=== PATIENT | female | born 1985 | race Caucasian/White ===

== ENCOUNTER 2021-02-20 04:34 | Inpatient (IN) | payer BC ==
[2021-02-20 05:05] VITALS: BMI 30.4
[2021-02-20] MEDS ORDERED: Lidocaine 1% (PF) 30 ML VIAL SC PRN (05:21)
[2021-02-20] MEDS ORDERED: hydrALAZINE 20 MG/ML VIAL SLOW IVP PRN ×3 (05:21→09:55)
[2021-02-20] MEDS ORDERED: HYDROcodone/Acetaminophen 5/325 mg Tablet PO PRN ×6 (05:21→09:55)
[2021-02-20] MEDS ORDERED: Promethazine HCl 25 MG/ML VIAL IM PRN (05:21)
[2021-02-20] MEDS ORDERED: Ondansetron PF 4 MG/2 ML Vial IVP PRN ×3 (05:21→09:55)
[2021-02-20] MEDS ORDERED: Butorphanol Tartrate 1 MG/ML VIAL SLOW IVP PRN (05:21)
[2021-02-20] MEDS ORDERED: Misoprostol 200 MCG TAB PR PRN (05:21)
[2021-02-20] MEDS ORDERED: Lactated Ringer's 1,000 ML IV PRN (05:21)
[2021-02-20] MEDS ORDERED: Ibuprofen 800 MG TAB PO PRN (05:21)
[2021-02-20] MEDS ORDERED: Methylergonovine 0.2 MG/ML VIAL IM PRN (05:21)
[2021-02-20] MEDS ORDERED: NS w/ Oxytocin 30 units 500 ML IV SCH ×3 (05:30→09:55)
[2021-02-20] MEDS ORDERED: Clindamycin/D5W 900 MG in Premix Bag 1 BAG IVPB SCH (06:00)
[2021-02-20] MEDS ORDERED: Lidocaine 1% (PF) 30 ML VIAL ONE (06:54)
[2021-02-20 07:04] LABS: Hemoglobin 12.6 g/dL (12.0-15.5); Mean Corpuscular HGB CONC 33.2 g/dL (32.0-36.0); Mean Corpuscular Hemoglobin 31.2 pg (27.0-33.0); Mean Corpuscular Volume 93.8 fl (81.6-98.3); Mean Platelet Volume 10.4 fl (7.4-10.4); Platelet Count 255 10x3/uL (150-450); RBC Distribution Width 13.4 % (11.5-14.5); Red Blood Cell (RBC) Count 4.04 10x6/uL (3.90-5.03); White Blood Cell (WBC) Count 13.8 10x3/uL (3.5-10.5)
[2021-02-20 07:39] LABS: Hep B Surf Ag Non-Reactive S/CO (NonReactive)
[2021-02-20 07:40] LABS: Syphilis Antibody Nonreactive (Nonreactive); Syphilis Antibody Index 0.02 S/CO (<1.00 Non-Reactive)
[2021-02-20 07:42] LABS: HBSAg Index 0.21 S/CO (0-0.99)
[2021-02-20] MEDS ORDERED: NS w/ Oxytocin 30 units 500 ML ONE (07:42)
[2021-02-20] MEDS ORDERED: Boostrix 0.5 ML (Tdap) VIAL IM ONE (08:26)
[2021-02-20] MEDS ORDERED: Misoprostol 200 MCG TAB VAG PRN ×2 (08:26→09:55)
[2021-02-20] MEDS ORDERED: Bisacodyl 10 MG SUPP PR PRN ×2 (08:26→09:55)
[2021-02-20] MEDS ORDERED: Milk Of Magnesia 30 ML UDCUP PO PRN ×2 (08:26→09:55)
[2021-02-20] MEDS ORDERED: Benzocaine-Menthol 82.5 ML CAN TOP PRN ×2 (08:26→09:55)
[2021-02-20] MEDS ORDERED: Lanolin Ointment 7 GM TUBE TOP PRN (08:26)
[2021-02-20] MEDS ORDERED: Ibuprofen 800 MG TAB PO SCH (08:30)
[2021-02-20] MEDS ORDERED: Ferrous Sulfate 325 MG TAB PO SCH ×2 (08:45→17:00)
[2021-02-20] MEDS ORDERED: Prenatal Vitamin 1 TAB PO SCH ×2 (09:00→10:15)
[2021-02-20] MEDS ORDERED: Docusate Calcium (SURFAK) 240 MG CAP PO SCH ×2 (09:00→10:15)
[2021-02-20 10:32] LABS: SARS-CoV-2 NAA Rapid Test Not Detected (NotDetected)
[2021-02-20] MEDS: Ibuprofen 800 MG TAB PO SCH ×2 (14:37→21:48)
[2021-02-20] MEDS: Ferrous Sulfate 325 MG TAB PO SCH (16:34)
[2021-02-20] MEDS: Docusate Calcium (SURFAK) 240 MG CAP PO SCH (21:50)
[2021-02-21] MEDS: Ibuprofen 800 MG TAB PO SCH (04:58)
[2021-02-21 07:55] VITALS: BP 120/67; TEMP 97.6
[2021-02-21] MEDS: Ferrous Sulfate 325 MG TAB PO SCH (08:11)
[2021-02-21] MEDS ORDERED: Prenatal Vitamin 1 TAB PO SCH (09:00)
[2021-02-21] MEDS: Docusate Calcium (SURFAK) 240 MG CAP PO SCH (09:06)
== END 2021-02-21 13:45 | disposition home or self-care (01) | DRG 807 ==
LOC: CSHLD/OP 04:34 → CSHLD 05:19 → CSHPP 09:20
PROVIDERS: ADMIT Obstetrics & Gynecology; ATTEND Obstetrics & Gynecology
PROC: 10E0XZZ Delivery of Products of Conception, External Approach (ICD-10-PCS; principal; 2021-02-20)
PROC: 10907ZC Drainage of Amniotic Fluid, Therapeutic from Products of Conception, Via Natural or Artificial Opening (ICD-10-PCS; 2021-02-20)
DX: O99.824 Streptococcus B carrier state complicating childbirth (principal); Z37.0 Single live birth; Z20.822 Contact with and (suspected) exposure to COVID-19; Z3A.39 39 weeks gestation of pregnancy; O77.0 Labor and delivery complicated by meconium in amniotic fluid
CPT/HCPCS: 85027; 86780; 86850; 86900; 86901; 87340; 99285; J2590; U0002